=== PATIENT | male | born 1985 | race African-American/Black ===

== ENCOUNTER 2023-01-11 18:23 | Emergency (ER) | payer OTHER ==
[2023-01-11 19:27] LABS: Absolute Lymphocytes (CBC) 2.2 K/uL (0.7-4.9); Hematocrit 43.1 % (39.6-49.0); Lymphocytes % 39.9 % (15.3-44.8); MCV 84.8 fL (80-100); MPV 7.6 fL (7.6-11.3); RBC Red Blood Cell Count 5.08 M/uL (4.33-5.43)
[2023-01-11] MEDS ORDERED: ACETAMINOPHEN 325 MG TABLET ONE (19:28)
[2023-01-11 19:34] LABS: Potassium 3.5 mEq/L (3.5-5.1)
--- NOTE | 2023-01-11 20:08 | EDPHYS ---
Physician Documentation [facility] Name: Kel Heard Age: 37 yrs Sex: Male : 1985 Arrival Date: 01/11/2023 Time: 18:23 Bed 14 Private MD: ED Physician Kush West HPI: 01/11 19:56 This 37 yrs old Black Male presents to ER via Ambulatory with complaints of kb Fatigue.headaches ,bump on leg spreading. 19:56 The patient's rash thought to be caused by an unknown cause. The rash is located on the kb lateral aspect of left thigh. The rash can be described as erythematous. Onset: The symptoms/episode began/occurred last week. Associated signs and symptoms: Pertinent positives: fever, Pain. Severity of symptoms: At their worst the symptoms were moderate in the emergency department the symptoms have improved mildly. The patient has not experienced similar symptoms in the past. The patient has not recently seen a physician. Pt reports rash to outer left thigh, fatigue, chills, bodyaches and malaise for the last week. Historical: - Allergies: 18:43 No Known Allergies; hb - Home Meds: 18:43 None [Active]; hb - PMHx: 18:43 None; hb - PSHx: 18:43 None; hb - Immunization history:: Adult Immunizations up to date. - Social history:: Smoking status: Patient denies any tobacco usage or history of. ROS: 19:24 Abdomen/GI: Negative for abdominal pain, nausea, vomiting, diarrhea, and constipation. kb 19:24 Constitutional: Positive for body aches, chills, fatigue, malaise. 19:24 Skin: Positive for erythema, of the lateral aspect of left thigh. 19:24 All other systems are negative. Exam: 19:24 Constitutional: This is a well developed, well nourished patient who is awake, alert, kb and in no acute distress. Head/Face: Normocephalic, atraumatic. ENT: Moist Mucous membranes Cardiovascular: Regular rate and rhythm with a normal S1 and S2. No gallops, murmurs, or rubs. No pulse deficits. Respiratory: Respirations even and unlabored. No increased work of breathing. Talking in full sentences Abdomen/GI: Soft, non-tender. No distention MS/ Extremity: Pulses equal, no cyanosis. Neurovascular intact. Full, normal range of motion. Neuro: Awake and alert, GCS 15, oriented to person, place, time, and situation. Moves all extremities. Normal gait. 19:56 Skin: rash a moderate rash is noted, rash can be described as erythematous, on the kb lateral aspect of left thigh. Vital Signs: 18:40 BP 128 / 86; Pulse 96; Resp 18; Temp 101.4(O); Pulse Ox 100% on R/A; Weight 115.67 kg; hb Height 5 ft. 11 in. ; Pain 7/10; 20:14 BP 119 / 71; Pulse 73; Resp 17; Temp 100; Pulse Ox 96% ; vc1 20:16 Temp 100; vc1 18:40 Body Mass Index 35.56 (115.67 kg, 180.34 cm) hb 18:40 Pain Scale: Adult hb MDM: 18:35 Patient medically screened. kb 19:31 Data reviewed: vital signs, nurses notes. kb 19:53 Differential diagnosis: allergic reaction, cellulitis, tinea. Counseling: I had a kb detailed discussion with the patient and/or guardian regarding: the historical points, exam findings, and any diagnostic results supporting the discharge/admit diagnosis, lab results, the need for outpatient follow up, a family practitioner, to return to the emergency department if symptoms worsen or persist or if there are any questions or concerns that arise at home. 01/11 18:49 Order name: Flu; Complete Time: 20:14 kb 01/11 18:49 Order name: SARS-COV-2 RT PCR; Complete Time: 19:52 kb 01/11 18:49 Order name: [place] Screen Profile; Complete Time: 19:41 kb 01/11 18:49 Order name: CBC with Diff; Complete Time: 19:38 kb 01/11 18:49 Order name: Basic Metabolic Panel; Complete Time: 19:38 kb 01/11 18:49 Order name: IV Start; Complete Time: 19:21 kb Administered Medications: 19:21 Drug: Acetaminophen PO 650 mg Route: PO; vc1 20:16 Follow up: Temp 100; Response: No adverse reaction; Marked relief of symptoms; vc1 Temperature is decreased Disposition Summary: 01/11/23 20:07 Discharge Ordered Location: Home kb Condition: Stable kb Diagnosis - Local infection of the skin and subcutaneous tissue, unspecified kb Followup: kb - With: Emergency Department - When: As needed - Reason: Worsening of condition Followup: kb - With: Private Physician - When: 2 - 3 days - Reason: Recheck today's complaints, Continuance of care, Re-evaluation by your physician Discharge Instructions: - Discharge Summary Sheet kb - Insect Bite, Adult, [id number] kb - Cellulitis, Adult, [id number] kb Forms: - Medication Reconciliation Form kb - Thank You Letter kb - Antibiotic Education kb - Prescription Opioid Use kb - Patient Portal Instructions kb Prescriptions: - Cephalexin 500 mg Oral Capsule - take 1 capsule by ORAL route every 8 hours for 10 days; 30 capsule; Refills: 0, kb Product Selection Permitted Signatures: Dispatcher [employer] EDRocio Horan, RAINA POON-Marjorie Deleon, RN RN Josefa Suárez RN RN vc1
--- NOTE | 2023-01-11 20:08 | ER ---
Nurse's Notes [facility] Name: Kel Heard Age: 37 yrs Sex: Male : 1985 Arrival Date: 01/11/2023 Time: 18:23 Bed 14 Private MD: Diagnosis: Local infection of the skin and subcutaneous tissue, unspecified Presentation: 01/11 18:40 Chief complaint: Fatigue, chills, headache, subjective fever, and abscess on left thigh hb x 5 days. Coronavirus screen: At this time, the client does not indicate any symptoms associated with coronavirus-19. Ebola Screen: No symptoms or risks identified at this time. Initial Sepsis Screen: Does the patient meet any 2 criteria? Temp <36.0*C (96.8*F)) or > 38.3*C (100.9*F). HR > 90 bpm. No. Patient's initial sepsis screen is negative. Does the patient have a suspected source of infection? No. Patient's initial sepsis screen is negative. Risk Assessment: Do you want to hurt yourself or someone else? Patient reports no desire to harm self or others. Onset of symptoms was January 06, 2023. 18:40 Method Of Arrival: Ambulatory hb 18:40 Acuity: PRIYANKA 3 hb Historical: - Allergies: 18:43 No Known Allergies; hb - Home Meds: 18:43 None [Active]; hb - PMHx: 18:43 None; hb - PSHx: 18:43 None; hb - Immunization history:: Adult Immunizations up to date. - Social history:: Smoking status: Patient denies any tobacco usage or history of. Screenin:22 [facility] ED Fall Risk Assessment (Adult) History of falling in the last 3 months, vc1 including since admission No falls in past 3 months (0 pts) Confusion or Disorientation No (0 pts) Intoxicated or Sedated No (0 pts) Impaired Gait No (0 pts) Mobility Assist Device Used No (0 pt) Altered Elimination No (0 pt) Score/Fall Risk Level 0 - 2 = Low Risk Oriented to surroundings, Maintained a safe environment, Educated pt \T\ family on fall prevention, incl call for assistance when getting out of bed. Abuse screen: Denies threats or abuse. Nutritional screening: No deficits noted. Tuberculosis screening: No symptoms or risk factors identified. Assessment: 19:00 Reassessment: Assumed care of patient from BETSY Chávez. vc1 19:00 Reassessment: Patient and/or family updated on plan of care and expected duration. Pain vc1 level reassessed. Patient is alert, oriented x 3, equal unlabored respirations, skin warm/dry/pink. 20:15 Reassessment: Patient and/or family updated on plan of care and expected duration. Pain vc1 level reassessed. Patient is alert, oriented x 3, equal unlabored respirations, skin warm/dry/pink. Patient states feeling better. Patient states symptoms have improved. 20:15 Pain: Denies pain. vc1 Vital Signs: 18:40 BP 128 / 86; Pulse 96; Resp 18; Temp 101.4(O); Pulse Ox 100% on R/A; Weight 115.67 kg; hb Height 5 ft. 11 in. ; Pain 7/10; 20:14 BP 119 / 71; Pulse 73; Resp 17; Temp 100; Pulse Ox 96% ; vc1 20:16 Temp 100; vc1 18:40 Body Mass Index 35.56 (115.67 kg, 180.34 cm) hb 18:40 Pain Scale: Adult hb ED Course: 18:27 Patient arrived in ED. ts1 18:32 Rocio Pond FNP-C [facility]. kb 18:32 Kush West MD is Attending Physician. kb 18:43 Triage completed. hb 18:43 Arm band placed on. hb 19:00 Patient has correct armband on for positive identification. Bed in low position. Call vc1 light in reach. 19:21 Josefa Suárez RN is Primary Nurse. vc1 19:21 Flu Sent. vc1 19:21 SARS-COV-2 RT PCR Sent. vc1 19:21 [place] Screen Profile Sent. vc1 19:21 CBC with Diff Sent. vc1 19:21 Basic Metabolic Panel Sent. vc1 20:28 Provided Education on: follow up with PCP if symptoms don't improve. vc1 20:28 No provider procedures requiring assistance completed. IV discontinued, intact, vc1 bleeding controlled, No redness/swelling at site. Pressure dressing applied. Administered Medications: 19:21 Drug: Acetaminophen PO 650 mg Route: PO; vc1 20:16 Follow up: Temp 100; Response: No adverse reaction; Marked relief of symptoms; vc1 Temperature is decreased Medication: 19:23 VIS not applicable for this client. vc1 Outcome: 20:07 Discharge ordered by . jr 20:28 Discharged to home ambulatory. vc1 20:28 Condition: good 20:28 Discharge instructions given to patient, Instructed on discharge instructions, follow up and referral plans. medication usage, Demonstrated understanding of instructions, follow-up care, medications, Prescriptions given X 1. 20:29 Patient left the ED. vc1 Signatures: Rocio Pond, CLEVE-C CLEVE-CkMarjorie Arroyo RN RN Josefa Suárez RN RN vc1 Linda England, DAVID PAS ts1 Corrections: (The following items were deleted from the chart) 20:15 20:15 Reassessment: No changes from previously documented assessment. Patient and/or vc1 family updated on plan of care and expected duration. Pain level reassessed. Patient is alert, oriented x 3, equal unlabored respirations, skin warm/dry/pink. vc1
[2023-01-11 20:35] VITALS: BP 119/71; TEMP 100; O2SAT 96
== END 2023-01-11 20:29 | disposition home or self-care (01) ==
LOC: ER 18:23
DX: L08.9 Local infection of the skin and subcutaneous tissue, unspecified (principal); R53.83 Other fatigue
CPT/HCPCS: 36415; 80048; 85025; 86308; 87635; 87804; 99284